=== PATIENT | female | born 1980 | race Caucasian/White ===

== ENCOUNTER 2019-07-07 11:14 | Day surgery (SDC) | payer BC ==
[~2019-07-07 11:14] MED LIST: Buffered Lidocaine 1% SYRIN* 1 ML/SYRINGE INTRADERM ONE; Lactated Ringers 1000 ML Bag* 1,000 ML IV SCH; Sodium Citrate/Citric Acid* 15 ML UDC PO ONE
[2019-07-07] MEDS ORDERED: ceFAZolin 2 GM PREMIX in ORs 2 GM/50 ML BAG ONE (11:26)
[2019-07-07] MEDS ORDERED: Buffered Lidocaine 1% SYRIN* 1 ML/SYRINGE INTRADERM ONE (11:41)
[2019-07-07] MEDS ORDERED: Sodium Citrate/Citric Acid* 15 ML UDC ONE (11:41)
[2019-07-07] MEDS ORDERED: Dexamethasone IV* 4 MG/ML 1 ML (4 MG) ONE (13:12)
[2019-07-07] MEDS ORDERED: Scopolamine 1.5 mg* PATCH ONE (13:12)
[2019-07-07] MEDS ORDERED: Bupivacaine 0.25% SDV* 30 ML ONE (13:21)
[2019-07-07] MEDS ORDERED: fentaNYL* 50 MCG/ML 2 ML VIAL (100 MCG VIAL) ONE ×2 (13:23→15:47)
[2019-07-07] MEDS ORDERED: Propofol* 10 MG/ML 20 ML BTL ONE (13:24)
[2019-07-07] MEDS ORDERED: Lidocaine 2% PF * 5 ML VIAL ONE (13:24)
[2019-07-07] MEDS ORDERED: Ketorolac INJ* 30 MG/ML 1 ML VIAL ONE (14:15)
[2019-07-07] MEDS ORDERED: Acetaminophen IV 1GM/100ML * 1,000 MG/100 ML VIAL IVPB ONE (14:58)
[2019-07-07] MEDS ORDERED: Naloxone* 0.4 MG/ML 1 ML VIAL IV PRN (14:58)
[2019-07-07] MEDS ORDERED: Ondansetron INJ* 2 MG/ML VIAL IV PRN (14:58)
[2019-07-07] MEDS ORDERED: Ondansetron INJ* 2 MG/ML VIAL ONE (15:00)
[2019-07-07] MEDS ORDERED: Acetaminophen IV 1GM/100ML * 100 ML ONE (15:11)
[2019-07-07] MEDS ORDERED: DiMENhydriNATE IV* 50 MG/ML VIAL ONE (15:35)
[2019-07-07] MEDS: fentaNYL* 50 MCG/ML 2 ML VIAL (100 MCG VIAL) IV PRN ×2 (15:50→16:02)
[2019-07-07 17:14] VITALS: BP 125/73
--- NOTE | 2019-07-07 21:11 | OP ---
DATE OF OPERATION: 07/07/19 - [facility] DATE OF : 84 SURGEON: Dipak Boss MD CHARGE MANAGER: MINH Lee. An field technical assistant was needed for the procedure to aid in positioning of the arm and retraction. ANESTHESIOLOGIST: Dr. Noe. ANESTHESIA: General. PRE-OP DIAGNOSES: 1. Right carpal tunnel syndrome. 2. 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 3. Right cubital tunnel syndrome. POST-OP DIAGNOSES: 1. Right carpal tunnel syndrome. 2. 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 3. Right cubital tunnel syndrome. OPERATIVE PROCEDURE: 1. Right endoscopic carpal tunnel release. 2. Right median nerve decompression in the proximal forearm with release of the lacertus fibrosus. 3. Right in situ cubital tunnel release. INDICATIONS: Ms. Ogden is 39 years old. She has clinical signs and symptoms of carpal and cubital tunnel syndromes as well as some median nerve compression in the proximal forearm. I talked to her about her treatment options, the risks and benefits. She wants to proceed. She understands there is a risk of persistent symptoms despite doing surgery as well as other standard surgical risks such as wound problems and nerve injury. ESTIMATED BLOOD LOSS: 5 mL. COMPLICATIONS: None. FINDINGS: See above and below. DESCRIPTION OF PROCEDURE: Ms. Ogden was seen in the preoperative holding area. The correct site, side, and procedures were identified. We came back to the operating room where the arm was prepped and draped in the usual fashion and a time-out was performed. The arm was exsanguinated with the Esmarch and the tourniquet was inflated to 250 mmHg. I first made a 1 cm transverse incision just off the ulnar aspect of the palmaris longus tendon just proximal to the wrist flexion crease. Dissection was carried down and the distal antebrachial fascia was bluntly split with the tenotomy scissors. A 2-prong skin hook was placed. The synovial stripper, dilators and Q- tip were all introduced to dilate and dry out the carpal tunnel. The MicroAire endoscopic carpal tunnel system was introduced. Once I had it in the appropriate position, I elevated the blade and the release was carried out from distal to proximal. I placed a Sarah retractor and confirmed the release. I then released the distal antebrachial fascia proximally. Wound was irrigated out and closed with 4-0 Prolene suture. I then made a 2 to 3 cm incision in the proximal forearm transversely over the lacertus fibrosus. Dissection was carried down bluntly and full-thickness flaps were raised off the fascia and lacertus fibrosus. Army-Chaires retractors were placed. The release was then completed distally and proximally releasing more fascia distally and more fascia proximally. There was a little perforating vessel that was cauterized. The median nerve was visualized and everything looked very good, so we irrigated out the wound and the skin was closed with 3-0 Monocryl subcuticularly. Lastly, I abducted and externally rotated the arm. A curvilinear incision about 4 cm in length was made over the cubital tunnel. Dissection was carried down and a large anconeus epitrochlearis muscle was noted. I started the release just distal to that. I released the superficial FCU fascia. I then split the 2 heads of the FCU and then released the subfascial layer and motor branches to the FCU were preserved. I then came back proximally and I located the nerve proximal down to the muscle. I then excised the entirety of the anconeus epitrochlearis muscle. The ulnar nerve was completely unroofed through the cubital tunnel. I then came proximally and placed an appendiceal retractor and released all the fascia overlying the ulnar nerve past the arcade of [place]. At this point, the nerve was very nicely decompressed. There was no subluxation or instability to the nerve, so I did not think we needed to transpose it. I think that anconeus epitrochlearis muscle was what was causing the symptoms. We irrigated out the wound. I obtained hemostasis with the Bovie and the bipolar. Subcutaneous tissue was reapproximated with 3-0 Vicryl. The skin was closed with 3-0 Monocryl and Steri-Strips. 0.25% Marcaine was infiltrated all about the operative area. The wounds were dressed with soft dressings and she was taken to the recovery room in stable condition. [id number]/[facility] #: [id number] SHILA
== END 2019-07-07 17:16 | disposition home or self-care (01) ==
LOC: OREAST 11:14
PROVIDERS: ATTEND Orthopaedic Surgery Hand Surgery
DX: G56.01 Carpal tunnel syndrome, right upper limb (principal); G56.21 Lesion of ulnar nerve, right upper limb; G56.11 Other lesions of median nerve, right upper limb; Z68.35 Body mass index [BMI] 35.0-35.9, adult; M79.7 Fibromyalgia; J45.909 Unspecified asthma, uncomplicated; I10 Essential (primary) hypertension; K21.9 Gastro-esophageal reflux disease without esophagitis
CPT/HCPCS: 81025; A9270-GY; J0690; J1100; J1240; J1885; J2405; J2704; J3010; J3490